=== PATIENT | male | born 1955 | race Caucasian/White ===

== ENCOUNTER 2023-11-27 01:08 | Outpatient (CLI) | payer MEDICARE, MEDICAID, SELFPAY | END 2023-11-27 01:09 | disposition home or self-care (01) | LOC: AMB 11-28 13:56 | PROVIDERS: PCP Family Medicine; Visit Provider Family Medicine | DX: R53.1 Weakness (principal); R06.09 Other forms of dyspnea | CPT/HCPCS: A0425; A0427 ==

== ENCOUNTER 2023-11-27 01:45 | Inpatient (IN) | payer MEDICARE, MEDICAID, SELFPAY ==
--- NOTE | 2023-11-27 | XR_ITS ---
Patient: EDYTA TELLEZ Facility:?[facility] Patient ID:?[id number] Site Patient ID:?[id number]. Site :?[id number] Study:?XRay-Chest PORTABLE-11/27/2023 3:03:25 AM Ordering Physician:FLY Final Report: INDICATION: Weakness. TECHNIQUE: Chest 1 view. COMPARISON: None. FINDINGS: Cardiovascular and mediastinum: Heart size and vasculature are normal in caliber and appearance. Lungs and pleural spaces: Patchy opacities in the right lower lung zone. No pleural effusions or pneumothorax. Bones and soft tissues: No significant findings. IMPRESSION: Right lower lung zone patchy opacities, likely representing pneumonia. Dictated by Twin Johnson MD @ 11/27/2023 3:05:44 AM Signed by:?Twin Johnson MD @11/27/2023 3:05:44 AM (Electronic Signature)
[2023-11-27 01:45] VITALS: BP 136/93; PULSE 80; RESP 20; TEMP 36.9; O2SAT 95
[2023-11-27] MEDS: 0.9 % SODIUM CHLORIDE 500 ML 500 ML IV (02:30)
[2023-11-27] MEDS: cefTRIAXone 1 GM in 0.9 % SODIUM CHLORIDE Mini-bag 100 ML IVPB (03:30)
--- NOTE | 2023-11-27 03:39 | ED_ITS ---
HPI - General Adult General Chief complaint: Weakness Stated complaint: weakness Time Seen by Provider: 11/27/23 03:39 Source: patient Mode of arrival: EMS Limitations: altered mental status and physical limitation History of Present Illness HPI narrative: Downtime documentation Jamil khalil Elderly gentleman with history of frontotemporal dementia presents via EMS with weakness.? He is on limited treatment due to his dementia, pulsed form is reviewed.? Apparently some facial droop was noted this morning.? He has been weaker than usual and is typically ambulatory though he is typically nonverbal at baseline.? He has had poor appetite, no fevers noted.? Breath sounds were coarse noted by EMS, they tried giving a DuoNeb in place the patient on supplemental oxygen.? O2 sats were in the mid 80s upon arrival improved to 92% on 4 L.? There did not seem to be improvement with the DuoNeb.? There is COVID present the in the facility but not in his neighboring area.? He does not give any additional information due to his nonverbal status.? All is obtained from EMS.? They do not report that he is prone to any particular infections.? No injury or trauma of note.? He is not anticoagulated. Home meds are cetirizine p.r.n., Tylenol p.r.n., senna p.r.n., it does not appears though he takes any chronic long-term medications on a daily basis. No known drug allergies.? Past medical history obtained only from paper records showing chronic pain, dementia, post herpetic neuropathy and constipation.? Patient is DNR with selective treatment recommended.? He has a county guardian. On physical exam, blood pressure is 123/89, pulse 1 await O2 sats are currently 100% on 4 L with a temp of 98.5? and respiratory rate of 20. ?Generally, he is pale Adolfo E coarse breath sounds, nonverbal.? The head is atraumatic eyes with normal-appearing pupils and conjunctiva.? Initially tracks me visually around the room but then falls asleep and will arouse briefly on stimulation but not attempt to speak.? Oropharynx with dry appearing membranes, poor dentition.? No obvious infection or swelling of the gums.? The neck does move in all directions as he looks around the room with no signs of rigidity.? No obvious lymphadenopathy heart with regular rate rhythm, slightly tachycardic no obvious murmur.? It is difficult hear the heart sounds over the very coarse breath sounds.? It does not sound like a wheeze more so like a central Adolfo that he does not attempt to clear on exam.? He has not kept neck but there is very poor aeration in the bases.? Abdomen soft nontender nondistended with no masses.? Does not seem to have any organomegaly.? The lower extremities have no pitting edema.? Neurological exam is quite difficult as he does not follow commands for me, no obvious tremor.? He does make some purposeful movements with his arms to hold on to cords and my hand but I cannot assess neurological function properly.? The skin does not have any obvious new open wounds on the legs, torso, arms or head. Course: Patient presenting with weakness, difficult to interpret in this patient with frontotemporal dementia but certainly does seem different than his baseline.? Infectious etiology most likely.? COVID, pneumonia, UTI strongly considered.? Cannot exclude electrolyte abnormality, dehydration, cardiac process, stroke, amongst many others.? Will start with chest x-ray, EKG, typical labs.? Will bolus 0.5 L of normal saline and put on mobility specialist.? I will need some clarification of his treatment goals based on our findings.? Await clinical response and lab studies.? I did attempt to obtain information from [employer]iq which is our down time platform and it was impossibly useless. Chest x-ray per my interpretation is showing right-sided consolidation.? Compared with Radiology interpretation, congruent. TECHNIQUE: Chest 1 view. COMPARISON: None. FINDINGS: Cardiovascular and mediastinum: Heart size and vasculature are normal in caliber and appearance. Lungs and pleural spaces: Patchy opacities in the right lower lung zone. No pleural effusions or pneumothorax. Bones and soft tissues: No significant findings. IMPRESSION: Right lower lung zone patchy opacities, likely representing pneumonia. Dictated by Twin Johnson MD @ 11/27/2023 3:05:44 AM (Electronic Signature) Labs unfortunately hemolyzed, redrawn.? This is causing significant delay in his care.? Chest x-ray is reviewed as above.? Patient clinically with pneumonia will start Rocephin, azithromycin and bolus 500 mL of normal saline x1.? Anticipated admission.? Still waiting for labs Related Data Home Medications ?Medication ?Instructions ?Recorded ?Confirmed No Known Home Medications 11/27/23 11/27/23 Allergies Allergy/AdvReac Type Severity Reaction Status Date / Time No Known Drug Allergies Allergy Verified 11/27/23 04:23 Exam Const: Vital Signs, click to edit/add: Vital Signs - 24 hr 11/27/23 01:45 11/27/23 04:27 Temperature 98.5 F Pulse Rate 98 Pulse Rate [Pulse Oximeter] 80 Respiratory Rate 20 22 Blood Pressure 122/86 Blood Pressure [Ri ght Upper Arm] 136/93 H Pulse Oximetry 95 93 Oxygen Delivery Me thod Nasal Cannula Non Rebreather Mas k Oxygen Flow Rate 4 4 Course Course ED Course: There was a significant delay in getting the patient's labs back due to downtime, acuity in the emergency department but also that the labs hemolyzed twice. The 3rd draw did finally run appropriately. His markedly elevated procalcitonin, elevated lactate with no other signs of sepsis. Creatinine is 1.9 with a baseline of around 1, he is really quite ill. The chest x-ray showing pneumonia. He has been started on Rocephin and azithromycin. He has had to boluses of IV fluid. He still is not showing any signs of hypotension. Tachycardia has improved after fluid. He still remains on 4 L of nasal cannula to maintain oxygen saturations and is still nonverbal which is his baseline. Hi need to have a conversation with his guardian regarding goals of care but I have reviewed his POLST and it does clearly say that he would want selective treatment but no intubation or critical care measures. Will admit to hospitalist for further guided care though is prognosis is fairly guarded. Diag noses thus far acute pneumonia, acute hypoxic respiratory failure, acute renal failure, cardiac strain secondary to acute illness. message left for guardian, no answer. Reevaluation(s) Time of Reevaluation #1: 06:25 Reevaluation #1: Spoke with overnight hospitalist, admission accepted but will probably wait to be seen by incoming day shift doctor. Still awaiting callback from guardian. Vital Signs Vital signs: Initial Vital Signs Temperature 98.5 F 11/27/23 01:45 Temperature Source Temporal Artery Scan 11/27/23 01:45 Pulse Rate 80 11/27/23 01:45 Respiratory Rate 20 11/27/23 01:45 Blood Pressure 136/93 H 11/27/23 01:45 Blood Pressure Mean 107 H 11/27/23 01:45 Blood Pressure Position Sitting 11/27/23 01:45 Pulse Oximetry 95 11/27/23 01:45 Oxygen Delivery Method Nasal Cannula 11/27/23 01:45 Oxygen Flow Rate 4 11/27/23 01:45 Vital Signs Temperature 98.5 F 11/27/23 01:45 Pulse Rate 80 11/27/23 01:45 Respiratory Rate 20 11/27/23 01:45 Blood Pressure 136/93 H 11/27/23 01:45 Pulse Oximetry 95 11/27/23 01:45 Oxygen Delivery Method Nasal Cannula 11/27/23 01:45 Oxygen Flow Rate 4 11/27/23 01:45 Temperature 98.5 F 11/27/23 01:45 Pulse Rate 98 11/27/23 04:27 Respiratory Rate 22 11/27/23 04:27 Blood Pressure 122/86 11/27/23 04:27 Pulse Oximetry 93 11/27/23 04:27 Oxygen Delivery Method Non Rebreather Mask 11/27/23 04:27 Oxygen Flow Rate 4 11/27/23 04:27 Medications Administered Medications: Discontinued Medications Generic Name Dose Route Start Last Admin Trade Name Freq PRN Reason Stop Dose Admin Ceftriaxone Sodium 1 gm/ 100 mls @ 200 mls/hr 11/27/23 03:20 11/27/23 05:00 Sodium Chloride IVPB 11/27/23 03:21 Infused ONCE ONE Infusion Azithromycin 500 mg/ Sodium 255 mls @ 255 mls/hr 11/27/23 03:20 11/27/23 05:28 Chloride IVPB 11/27/23 03:21 Infused ONCE ONE Infusion Sodium Chloride 500 mls @ 500 mls/hr 11/27/23 02:30 11/27/23 04:59 0.9 % Sodium Chloride 500 Ml IV 11/27/23 03:29 Infused .Q1H ONE Infusion Medical Decision Making Lab Data Lab results reviewed: Yes I reviewed the patient's lab results Lab results narrative: Marked derangement of multiple labs. Elevated lactate, elevated creatinine, mild elevation troponin. Marked elevation of procalcitonin and CRP. Viral swabs are negative. These all point to a pretty severe infection with signs of some early sepsis. No severe sepsis. Please note that there was a marked delay in getting his lab result, over 3 hours due to multiple unfortunate hemolysis events and also delays for EMR down time as well as staffing resources due to acuity of other patients. Patient is on limited, selective treatment. It is thought that the repeat lactate would not be helpful because of his severely debilitated state and previous desire for limited treatment. Message has been l eft for guardian to clarify goals. Labs: Lab Results 11/27/23 11/27/23 Range/Units 02:09 04:30 WBC 10.68 (4.50-11.00) K/uL RBC 5.28 (4.30-5.90) m/uL Hgb 16.6 (13.5-17.5) gm/dL Hct 50.8 (37.0-53.0) % MCV 96 (80-100) fL MCH 31 (26-34) pg MCHC 33 (32-36) gm/dL Plt Count 154 (140-440) K/uL Neut % (Auto) 82.2 H (42.0-72.0) % Lymph % (Auto) 7.7 L (20-44) % Mcdonald % (Auto) 9.4 (0.0-11.0) % Eos % (Auto) 0.0 (0.0-7.0) % Baso % (Auto) 0.1 (0.0-3.0) % Neut # (Auto) 8.80 H (1.7-7.0) K/uL Lymph # (Auto) 0.80 L (0.90-2.90) K/uL Mcdonald # (Auto) 1.00 H (0.00-0.90) K/UL Eos # (Auto) 0.00 (0.00-0.50) K/uL Baso # (Auto) 0.00 (0.00-0.30) K/uL Sodium 139 (135-149) mmol/L Potassium 4.8 (3.6-5.1) mmol/L Chloride 103 (96-114) mmol/L Carbon Dioxide 26 (20-32) mmol/L Anion Gap 10 (7-15) mEq/L BUN 43 H (7-30) mg/dL Creatinine 1.9 H (0.5-1.5) mg/dL Estimated GFR 37 ml/min Glucose 182 H (60-115) mg/dL Lactate 3.8 H (0.5-1.9) mmol/L Calcium 8.7 (8.4-10.6) mg/dL Total Bilirubin 0.6 (0.1-1.5) mg/dL AST 41 H (12-35) U/L ALT 20 (4-50) U/L Alkaline Phosphatase 46 (40-150) U/L Total Creatine Kinase 856 H (54-186) U/L Troponin I 0.08 H* (0.01-0.04) ng/mL C-Reactive Protein 23.8 H (0.5-1.0) mg/dL NT-Pro-B Natriuret Pep 3770 pg/mL Total Protein 7.1 (6.0-8.3) g/dL Albumin 4.1 (3.3-5.0) g/dL Procalcitonin 44.40 H (<0.50) ng/mL Ethyl Alcohol < 0.10 H (0.01-0.03) % SARS-CoV-2 (PCR) Negative SARS-CoV-2 (Negative) Influenza Type A (PCR) Negative PCR FLU A (Negative) Influenza Type B (PCR) Negative PCR FLU B (Negative) RSV (PCR) Negative PCR RSV (Negative) ECG Data Attestation: I personally reviewed and interpreted this ECG as follows: Interpretation: Sinus tachycardia, rate 104. There are a few PACs present but overall regular. Normal intervals and axis. No obvious new ST or T-wave abnormalities or signs of ischemia. Comparison 02/20/08, similar. Discharge Plan Discharge Clinical Impression: HCAP (healthcare-associated pneumonia), Acute hypoxic respiratory failure, Acute renal failure Patient Disposition: Admitted As Inpatient Condition: Guarded
[2023-11-27] MEDS: AZITHROMYCIN 500 MG in 0.9 % SODIUM CHLORIDE 250 ml 250 ML 255 MG IVPB (04:00)
[2023-11-27 04:27] VITALS: BP 122/86; PULSE 98; RESP 22; O2SAT 93
[2023-11-27 05:32] LABS: Basophils Percent Auto 0.1 % (0.0-3.0); Hematocrit 50.8 % (37.0-53.0); Hemoglobin* 16.6 gm/dL (13.5-17.5); Lymphocytes Percent Auto 7.7 % (20-44); Mean Corpuscular HGB Conc 33 gm/dL (32-36); Mean Corpuscular Hemoglobin 31 pg (26-34); Mean Corpuscular Volume 96 fL (80-100); Monocytes Percent Auto 9.4 % (0.0-11.0); Neutrophils Percent Auto 82.2 % (42.0-72.0); Platelet Count* 154 K/uL (140-440); Red Blood Count 5.28 m/uL (4.30-5.90); White Blood Count* 10.68 K/uL (4.50-11.00)
[2023-11-27 05:33] LABS: Slide Review Reflex No
[2023-11-27 05:39] LABS: Anion Gap 10 mEq/L (7-15); Blood Urea Nitrogen* 43 mg/dL (7-30); Carbon Dioxide* 26 mmol/L (20-32); Chloride* 103 mmol/L (96-114); Creatinine* 1.9 mg/dL (0.5-1.5); Estimated Glomerular Filt Rate 37 ml/min; Potassium* 4.8 mmol/L (3.6-5.1); Sodium* 139 mmol/L (135-149)
[2023-11-27 05:39] LABS: Lactate* 3.8 mmol/L (0.5-1.9)
[2023-11-27 05:40] LABS: Alanine Aminotransferase* 20 U/L (4-50); Albumin* 4.1 g/dL (3.3-5.0); Alkaline Phosphatase* 46 U/L (40-150); Aspartate Amino Transferase* 41 U/L (12-35); Bilirubin Total* 0.6 mg/dL (0.1-1.5); Calcium* 8.7 mg/dL (8.4-10.6); Creatine Kinase* 856 U/L (54-186); Glucose* 182 mg/dL (60-115); Total Protein* 7.1 g/dL (6.0-8.3)
[2023-11-27 05:41] LABS: NT Pro B Type NatriureticPept* 3770 pg/mL; Troponin I* 0.08 ng/mL (0.01-0.04)
[2023-11-27 05:42] LABS: C Reactive Protein* 23.8 mg/dL (0.5-1.0); Ethanol* < 0.10 % (0.01-0.03)
[2023-11-27 05:43] LABS: PCR FLU A Negative PCR FLU A (Negative); PCR FLU B Negative PCR FLU B (Negative); PCR RSV Negative PCR RSV (Negative); SARS PCR* Negative SARS-CoV-2 (Negative)
--- NOTE | 2023-11-27 07:48 | PM.IMHP1 ---
Hospitalist- H&P: HPI History of Present Illness Date Seen: 11/27/23 Chief complaint: weakness Narrative: Jamil Patino is a 68 year old male CXR 1V IMPRESSION: Right lower lung zone patchy opacities, likely representing pneumonia. Meds Home Medications and Allergies Home Medications ?Medication ?Instructions ?Recorded ?Confirmed ?Type No Known Home Medications 11/27/23 11/27/23 History Allergies Allergy/AdvReac Type Severity Reaction Status Date / Time No Known Drug Allergies Allergy Verified 11/27/23 04:23 Exam Const: Vital Signs, click to edit/add: Vital Signs - 24 hr 11/27/23 01:45 11/27/23 04:27 Temperature 98.5 F Pulse Rate 98 Pulse Rate [Pulse Oximeter] 80 Respiratory Rate 20 22 Blood Pressure 122/86 Blood Pressure [Ri ght Upper Arm] 136/93 H Pulse Oximetry 95 93 Oxygen Delivery Me thod Nasal Cannula Non Rebreather Mas k Oxygen Flow Rate 4 4 Hospitalist - H&P: Result Labs Labs: Short CBC 11/27/23 Range/Units 02:09 WBC 10.68 (4.50-11.00) K/uL Hgb 16.6 (13.5-17.5) gm/dL Hct 50.8 (37.0-53.0) % Plt Count 154 (140-440) K/uL BMP 11/27/23 04:30 Sodium 139 Potassium 4.8 Chloride 103 Carbon Dioxide 26 BUN 43 H Creatinine 1.9 H Glucose 182 H Calcium 8.7 Cardiac Enzymes 11/27/23 Range/Units 04:30 Total Creatine Kinase 856 H (54-186) U/L Troponin I 0.08 H* (0.01-0.04) ng/mL Liver Function 11/27/23 Range/Units 04:30 Total Bilirubin 0.6 (0.1-1.5) mg/dL AST 41 H (12-35) U/L ALT 20 (4-50) U/L Alkaline Phosphatase 46 (40-150) U/L Albumin 4.1 (3.3-5.0) g/dL
[2023-11-27 08:15] VITALS: RESP 22; O2SAT 92
[2023-11-27 08:30] VITALS: BP 124/84; PULSE 97; RESP 22; TEMP 37.3; O2SAT 92; O2SAT 93
[2023-11-27 09:00] VITALS: O2SAT 90
[2023-11-27] MEDS: 5 % DEX/0.9 SOD CHL+KCL 20 mEq 1,000 ML 125 ML IV (09:01)
[2023-11-27] MEDS: FUROSEMIDE 10 MG/ML inj 40 MG IVP (09:01)
[2023-11-27] MEDS: PANTOPRAZOLE SODIUM 40 MG INJ IVP (09:02)
[2023-11-27] MEDS: 0.9 % SODIUM CHLORIDE 1000 ml 1,000 ML 500 ML IV (09:07)
[2023-11-27 09:13] LABS: HCO3 VBG 24 mmol/L (21-28); Lactate* 3.1 mmol/L (0.5-1.9); PCO2 VBG 42 mmHG (40-50); PO2 VBG 36.8 mmHG (25-47); pH VBG 7.375 (7.32-7.43)
[2023-11-27 09:37] LABS: Magnesium* 2.1 mg/dL (1.5-2.6)
[2023-11-27 09:49] LABS: NT Pro B Type NatriureticPept* 2320 pg/mL
[2023-11-27 09:51] LABS: Troponin I* 0.06 ng/mL (0.01-0.04)
--- NOTE | 2023-11-27 11:59 | REH.OT ---
OT: Orders received this am. Per MD, patient transitioned to comfort cares, will defer OT/PT evals.
[2023-11-27] MEDS: fentaNYL 25 MCG/HR PATCH 1 PATCH TRANSDERMA (12:22)
[2023-11-27] MEDS: MORPHINE 10 MG/0.5 ML ORAL SOLN PO ×4 (12:22→21:31)
[2023-11-27] MEDS: LORazepam 2 MG/ML inj IVP (12:31)
[2023-11-27] MEDS: HYOSCYAMINE SULFATE 0.125 MG TAB SUBLINGUAL (12:32)
--- NOTE | 2023-11-27 13:35 | P.IMHP_ITS ---
Hospitalist- H&P: HPI History of Present Illness Date Seen: 11/27/23 Chief complaint: weakness Narrative: ADMISSION HISTORY AND PHYSICAL - HOSPITALIST Chief Complaint: Nonverbal dementia, severe with new tachycardia and weakness HPI: 68-year-old Chip presents from where he resides with advanced fronto-temporal dementia. He is nonverbal, he is fed by staff, he is able to ambulate. In the last 2 days he has had a poor appetite and has been weak (not able or initiating getting out of bed) No fever, nausea, vomiting. No falls. Staff report possible facial drooping. He has a POLST that has limited treatment. He is DNR/DNI. ER COURSE: CXR shows pna in the RLL. He was started on abx and labs were checked, small fluid bolus. He has an oxygen requirement about 4L. CODE STATUS: DNR/DNI EMERGENCY CONTACT PLAN: complicated social situation; has court appointed guardian. Daughter and guardian were bedside. Alexa Eckert cell: [phone] Joan Patino Rel To Pat Daughter I've updated the PFSH, medications and allergies in the Expanse tabs. INVESTIGATIONS: LABS/MICRO/ECG/IMAGING CXR 1V IMPRESSION: Right lower lung zone patchy opacities, likely representing pneumonia. WBC normal, pH normal, lactate 3.8 and down to 3.1 with fluid bolus. Neg covid, flu, RSV swab MRSA swab pending BC pending REVIEW OF SYSTEMS: 12-point ROS completed with patient and negative unless otherwise stated in HPI or below. PHYSICAL EXAM: CONSTITUTIONAL: will open eyes, seems to track w/his eyes who is talking but will then nod off. Is not really following commands. VITAL SIGNS: see record. HEENT: Normocephalic, atraumatic. PERRL, EOMI, conjunctivae pink, no scleral icterus. Ears and nose externally normal. Pharynx dry. NECK: No JVD. No carotid bruit, no thyromegaly, no adenopathy. CHEST: rhonchi throughout. gurgling. HEART: S1 and S2 normal. No harsh murmurs. No edema. MUSCULOSKELETAL: No gross joint deformity or swelling. NEURO: Cranial nerves intact. Grossly intact. No asymmetric findings. SKIN: No rashes, petechiae, concerning changes PSYCHIATRIC: mostly obtunded. [facility] DVT: N/A GI: N/A Time spent: Today I spent 75 minutes seeing the patient, discussing the patient with ER staff, reviewing Expanse and EPIC notes/diagnostics, discussing the care plan with our care time that includes social work, PT/OT, pharmacy, RT, mcfp and documenting my impressions and plan in the medical record. [facility] Medical History (Updated 11/27/23 @ 14:01 by Jacquelyn Myers MD) Frontal lobe dementia ?G31.09 - Other frontotemporal neurocognitive disorder (ICD-10) ?F02.80 - Dementia in other diseases classified elsewhere, unspecified severity, without behavioral disturbance, psychotic disturbance, mood disturbance, and anxiety (ICD-10) Social History What is your current living situation?: I presently have a place to live Problems where you live: no known problems Problems where you live details: Detention In the past 12 months, utilities in danger of being shut off: no In past 12 months, lack of transportation kept you from medical appts, meetings, work, or getting things needed for daily living: no In the past 12 mos, have been you worried that your food would run out before you had money to buy more?: never true In the past 12 mos, the food you bought just didn't last and you didn't have money to buy more?: never true Non-prescribed substance use details: unknown Caffeine: No How often does anyone, including family, friends and others, physically hurt you : unable to answer How often does anyone, including family, friends and others, insult or talk down to you: unable to answer How often does anyone, including family, friends and others, threaten you with harm: unable to answer How often does anyone, including family, friends and others, scream or curse at you: unable to answer Meds Home Medications and Allergies Home Medications ?Medication ?Instructions ?Recorded ?Confirmed ?Type acetaminophen 500 mg tablet 1,000 mg PO BID 11/27/23 11/27/23 History carbamide peroxide 6.5 % ear drops 3 drp Otic (ear-left) Q7D 11/27/23 11/27/23 History (Debrox) cetirizine 10 mg tablet (Allergy 10 mg PO DAILY 11/27/23 11/27/23 History Relief (cetirizine)) cyanocobalamin (vitamin B-12) 1,000 mcg PO DAILY 11/27/23 11/27/23 History 1,000 mcg tablet sennosides 8.6 mg tablet (Laurie-rhonda) 17.2 mg PO BID PRN 11/27/23 11/27/23 History Allergies Allergy/AdvReac Type Severity Reaction Status Date / Time No Known Drug Allergies Allergy Verified 11/27/23 04:23 Exam Const: Vital Signs, click to edit/add: Vital Signs - 24 hr 11/27/23 01:45 11/27/23 04:27 11/27/23 08:15 Temperature 98.5 F Pulse Rate 98 Pulse Rate [Pulse Oximeter] 80 Respiratory Rate 20 22 22 Blood Pressure 122/86 Blood Pressure [Ri ght Arm] Blood Pressure [Ri ght Upper Arm] 136/93 H Pulse Oximetry 95 93 92 Oxygen Delivery Me thod Nasal Cannula Non Rebreather Mas k High Flow Nasal Ca nnula Oxygen Flow Rate 4 4 30 Fraction of Inspir ed Oxygen 30 11/27/23 08:30 11/27/23 08:30 11/27/23 09:00 Temperature 99.2 F Pulse Rate Pulse Rate [Pulse Oximeter] 97 Respiratory Rate 22 22 Blood Pressure Blood Pressure [Ri ght Arm] 124/84 Blood Pressure [Ri ght Upper Arm] Pulse Oximetry 92 93 90 Oxygen Delivery Me thod High Flow Nasal Ca nnula High Flow Nasal Ca nnula Oxygen Flow Rate 30 30 Fraction of Inspir ed Oxygen 30 30 11/27/23 10:11 11/27/23 13:13 Temperature Pulse Rate Pulse Rate [Pulse Oximeter] Respiratory Rate Blood Pressure Blood Pressure [Ri ght Arm] Blood Pressure [Ri ght Upper Arm] Pulse Oximetry Oxygen Delivery Me thod OxyMask Oxygen Flow Rate 30 4 Fraction of Inspir ed Oxygen 30 Hospitalist - H&P: Result Labs Labs: Short CBC 11/27/23 Range/Units 02:09 WBC 10.68 (4.50-11.00) K/uL Hgb 16.6 (13.5-17.5) gm/dL Hct 50.8 (37.0-53.0) % Plt Count 154 (140-440) K/uL BMP 11/27/23 04:30 Sodium 139 Potassium 4.8 Chloride 103 Carbon Dioxide 26 BUN 43 H Creatinine 1.9 H Glucose 182 H Calcium 8.7 Cardiac Enzymes 11/27/23 11/27/23 Range/Units 04:30 08:50 Total Creatine Kinase 856 H (54-186) U/L Troponin I 0.08 H* 0.06 H* (0.01-0.04) ng/mL Liver Function 11/27/23 Range/Units 04:30 Total Bilirubin 0.6 (0.1-1.5) mg/dL AST 41 H (12-35) U/L ALT 20 (4-50) U/L Alkaline Phosphatase 46 (40-150) U/L Albumin 4.1 (3.3-5.0) g/dL Assessment and Plan Assessment and plan (1) Acute hypoxic respiratory failure: Problem comment: -aspiration pna likely -supported on oxygen for comfort -comfort cares to lessen air hunger Status: Acute (2) Aspiration pneumonia: Problem comment: -not witnessed; presumed -initially we pursued CAP treatment and applied humidifed high flow oxygen. He has minimal air hunger but his coarse breath sounds are prominent -met bedside with guardian and daughter; we discussed his wishes, prognosis, quality of life and they both felt he would not want to live this way even if we got him thru this -initiated comfort care protocol Status: Acute (3) Frontal lobe dementia: Problem comment: severe, end stage. nonverbal, fed by staff Status: Acute (4) Acute renal failure: Problem comment: creat1.9, GFR 35 unsure of baseline but CKD not listed in problem list from SNF Status: Acute
[2023-11-27 15:00] VITALS: RESP 22
--- NOTE | 2023-11-27 19:13 | PC.NURSE ---
Comfort care protocol: Alert, although nonverbal initially this AM. The patients lungs are coarse, productive cough, but does not know how to spit it out. Incontinent of bladder throughout the day. Q2 reposition and change. The patient is now drowsy and appears comfortable. Fentanyl patch to R chest. R forearm IV. Mouth cares provided throughout the shift. The patients family came to visit this evening. Tasneem CARROLL BSN
[2023-11-27] MEDS: SODIUM CHLORIDE 0.9 % (FLUSH) 10 ML SYRINGE 5 ML IVF (20:42)
[2023-11-28] MEDS: MORPHINE 10 MG/0.5 ML ORAL SOLN PO ×4 (01:28→14:24)
[2023-11-28 02:09] VITALS: TEMP 39.4
[2023-11-28] MEDS: ACETAMINOPHEN 650 MG SUPP PR (02:09)
[2023-11-28] MEDS: HYOSCYAMINE SULFATE 0.125 MG TAB SUBLINGUAL (05:01)
--- NOTE | 2023-11-28 06:52 | PC.NURSE ---
End of shift note ([id number]): Patient on comfort cares. Opened eyes a couple times during cares. Repositioned q 2 hrs. PRN morphine given for grimacing in pain and prior to cares. PRN Tylenol suppository given for fever. ?
[2023-11-28 07:00] VITALS: RESP 20; O2SAT 90
--- NOTE | 2023-11-28 09:07 | NUTR.NU ---
RDN with nutrition screen related to positive skin risk. Patient admitted for pneumonia and respiratory failure. Per IDT meeting today, MD reports patient is now on comfort cares. With comfort care status, nutrition interventions not appropriate at this time. RDN to monitor.
[2023-11-28] MEDS: SODIUM CHLORIDE 0.9 % (FLUSH) 10 ML SYRINGE 5 ML IVF ×2 (09:47→20:38)
--- NOTE | 2023-11-28 11:54 | PM.IMPN1 ---
Progress Note: A&P Assessment and plan (1) Acute hypoxic respiratory failure: Problem details: -aspiration pna likely -comfort cares to lessen air hunger Status: Acute (2) Aspiration pneumonia: Problem details: -not witnessed; presumed -transitioned to comfort cares morning of 11/27/23 -met bedside with guardian and daughter; we discussed his wishes, prognosis, quality of life and they both felt he would not want to live this way even if we got him thru this -updated ANTNOIA bedside am of 11/28/23 Status: Acute (3) Frontal lobe dementia: Problem details: severe, end stage. nonverbal, fed by staff Status: Acute (4) Acute renal failure: Problem details: creat1.9, GFR 35 unsure of baseline but CKD not listed in problem list from SNF Status: Acute Subjective Date Seen: 11/28/23 Interval history: Daily Progress Note - Hospital Medicine Day #: 2 CC: end stage dementia; aspiration pneumonia, end of life care 24 HOUR UPDATE: resting comfortably; febrile; minimal air hunger Notable Labs, Micro, Rads, Interventions: no new diagnostics. HF NC02 was not making any comfort difference so this was discontinued. Objective: obtunded. Vitals: see above Lungs: shallow respirations. Cardiac: S1S2. Disposition/Potential discharge - end of life cares here vs transfer to SNF for Hospice. I spoke with Barb KNIGHT, about his transition and my thoughts. Today I spent 50minutes seeing the patient, reviewing Expanse and EPIC notes/diagnostics, discussing the care plan with our care time that includes social work, PT/OT, pharmacy, RT, nursing home and documenting my impressions and plan in the medical record. Exam Const: Vital Signs, click to edit/add: Vital Signs - 24 hr 11/27/23 13:13 11/27/23 15:00 11/27/23 15:00 Temperature Respiratory Rate 22 Pulse Oximetry Oxygen Delivery Me thod OxyMask Room Air Oxygen Flow Rate 4 11/27/23 23:00 11/28/23 02:09 11/28/23 07:00 Temperature 103 F H Respiratory Rate 20 Pulse Oximetry Oxygen Delivery Me thod Room Air Oxygen Flow Rate 11/28/23 07:00 Temperature Respiratory Rate 20 Pulse Oximetry 90 Oxygen Delivery Me thod Room Air Oxygen Flow Rate
--- NOTE | 2023-11-28 14:55 | PC.SOCIAL ---
Addendum entered by RADHA Abraham 11/28/23 15:11: Discharge planning: factory worker also updated the charge nurse on duty with all of the below updates. Social work to follow-up as needed. Original Note: Discharge planning: factory worker spoke to pt's court appointed guardian, Tomeka, today to connect about a plan for the pt tomorrow if he is still present in the morning. Tomeka shared that it would be best for the pt to go back to his room in the memory care unit with hospice care in place, if at all possible. Tomeka was fine with either [facility] or [facility], if hospice is needed. factory worker consulted with the provider on duty who shared that the pt would be fine to go in an ambulance ride in the morning if he does need to transfer. factory worker also spoke to social melissa Hickman at [facility] #[phone], and she consulted with the nursing staff whom shared that they could take the pt back at his memory care unit with hospice in place if that is what is recommended/needed in the morning. factory worker will check back in with Vick in the morning, if needed. factory worker then also updated pt's guardian, Tomeka, with the news that [facility] could take the pt back tomorrow in his room on the memory care unit with hospice in place. Tomeka was thankful for the update. Social work to follow-up as needed.
[2023-11-28 15:00] VITALS: PULSE 104; RESP 20; O2SAT 90
--- NOTE | 2023-11-28 19:05 | PC.NURSE ---
End of shift: patient turn and repo Q2 hrs. Brief checked for wetness. Patient administered Morphine for pain. Patient resting comfortably. Fent. patch to right upper chest intact. IV in R FA intact and patent.
[2023-11-28 23:00] VITALS: PULSE 99; RESP 20; O2SAT 89
[2023-11-29] MEDS: MORPHINE 10 MG/0.5 ML ORAL SOLN PO ×3 (03:02→15:46)
--- NOTE | 2023-11-29 06:04 | PC.NURSE ---
Shift note: Pt has been comfortable in bed in most the night. Turn and reposition Q2h. At 0300, pt was restless. Morphine 10mg given and appeared effective. Pt only had 1 soiled brief. Pt has occasional jerky and startle movement of the upper extremities. No excessive oral secretion noted.
[2023-11-29 07:00] VITALS: PULSE 156; RESP 28; O2SAT 67
[2023-11-29] MEDS: HYOSCYAMINE SULFATE 0.125 MG TAB SUBLINGUAL (07:49)
--- NOTE | 2023-11-29 11:38 | PM.DS1 ---
DS: Providers Provider Date Seen: 11/29/23 Date of admission: 11/27/23 07:40 Primary care physician: Roby Jay MD Admitting Clinician: Jacquelyn Myers MD Consults: 11/27/23 08:00 Consult to Respiratory Therapy [CONS] Routine Comment: Reason(s) for RT Consult:: Consult Consult to Metrologist [CONS] Routine Comment: Reason for Consult:: Social Service Consult Attending Physician on discharge: Jacquelyn Myers MD Date of Discharge: 11/29/23 DS: Diagnosis Discharge Diagnosis (1) Acute hypoxic respiratory failure: Status: Acute Problem details: -aspiration pna likely -comfort cares to lessen air hunger (2) Aspiration pneumonia: Status: Acute Problem details: -not witnessed; presumed -transitioned to comfort cares morning of 11/27/23 -met bedside with guardian and daughter; we discussed his wishes, prognosis, quality of life and they both felt he would not want to live this way even if we got him thru this -updated ANTONIA bedside am of 11/28/23 (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 nonverbal, fed by staff (4) Acute renal failure: Status: Acute Problem details: creat 1.9, GFR 35 unsure of baseline but CKD not listed in problem list from SNF DS: Summary Hospital Course Hospital Course: FINAL DIAGNOSIS/FOLLOW UP ISSUES: End of Life Care - Accepted to Hospice services at [facility]. BRIEF HOSPITAL COURSE: Patient was admitted for 3 days. Chip has advanced frontotemporal dementia and likely had an aspiration event in the days [employer]. Initially we stablized and started treatment for aspiration/community acquired pneumonia. He was delirious, febrile, weak. He is nonverbal at a baseline. After a lengthy discussion with multiple people (daughter, court-ordered guardian, [id number]) DISCHARGE MEDICATIONS: See Reconciled list - SIGNIFICANT CHANGES: Comfort based medication orders Specific instructions to the patient and follow-up are outlined below. REVIEW OF SYSTEMS No new chest pain or dyspnea Pain controlled No voiding difficulties Tolerating diet challenge PHYSICAL EXAM: CONSTITUTIONAL: obtunded; febrile. mild resp hunger. VITAL SIGNS: see record. HEENT: Normocephalic, atraumatic. PERRL, EOMI, conjunctivae pink, no scleral icterus. Ears and nose externally normal. Pharynx normal. NECK: No JVD. No carotid bruit, no thyromegaly, no adenopathy. CHEST: shallow rapid breathes; diffuse rhonchi HEART: S1 and S2 normal. no edema. ABDOMEN: Soft, nontender. Normal bowel sounds. MUSCULOSKELETAL: No gross joint deformity or swelling. NEURO: Cranial nerves intact. Grossly intact. No asymmetric findings. SKIN: No rashes, petechiae, concerning changes PSYCHIATRIC: comatose DISPOSITION: Hospice placement Time spent on discharge 37 minutes. Time Spent with Patient Time attestation: Total time spent providing and/or coordinating discharge services: Exam Const: Vital Signs, click to edit/add: Vital Signs - 24 hr 11/28/23 15:00 11/28/23 15:00 11/28/23 23:00 Pulse Rate [Pulse Oximeter] 104 H 99 Respiratory Rate 20 20 20 Pulse Oximetry 90 Oxygen Delivery Me thod Room Air 11/28/23 23:00 11/29/23 07:00 11/29/23 07:00 Pulse Rate [Pulse Oximeter] 156 H Respiratory Rate 20 28 H 28 H Pulse Oximetry 89 67 L Oxygen Delivery Me thod Room Air Room Air DS: Data Data Completed and Pending Labs on day of discharge: Preliminary micro results at discharge 11/27/23 08:50 Blood Culture - Preliminary Blood NO GROWTH AFTER 48 HOURS Discharge Plan Discharge Disposition: [facility] Date of Admission: 11/27/23 07:40 Attending Provider on Discharge: Jacquelyn yMers Primary Care Provider: Roby Jay Discharge Medications: New morphine concentrate 10 mg/0.5 mL Syringe 1 - 10 mg PO Q1H PRNQty: 5 0RF lorazepam 2 mg/mL Syringe 0.5 - 2 mg IV push (test dose) Q1H PRNQty: 5 0RF hyoscyamine sulfate 0.125 mg Tablet,Disintegrating 0.125 - 0.25 mg sublingual Q4H PRN (Reason: To decrease secretions) Qty: 20 0RF fentanyl 25 mcg/hr Patch 72 Hour 1 patch transdermal Q72H Qty: 10 0RF acetaminophen 650 mg Suppository 650 mg AK Q6H PRN (Reason: As needed for fever, headache, or minor pain) Qty: 30 0RF Discontinued cetirizine [Allergy Relief (cetirizine)] 10 mg tablet 10 mg PO DAILY cyanocobalamin (vitamin B-12) 1,000 mcg tablet 1,000 mcg PO DAILY Debrox 6.5 % drops 3 drp Otic (ear-left) Q7D Rx Instructions: wednesdays acetaminophen 500 mg tablet 1,000 mg PO BID Patient Comments: plus daily prn sennosides [Laurie-rhonda] 8.6 mg tablet 17.2 mg PO BID PRN Discharge Orders: Discharge Order (Routine); Ordered 11/29/23 Ordered By: Jacquelyn Myers Additional Instructions: Please consult HOSPICE service for evaluation/admission. Activity Detail: bedrest Discharge Diet: Regular Follow Up Appointments: Roby Jay MD [Primary Care Provider] - Forms: [facility] Info Instructions Admit to: SNF Discharge Potential: Poor Length of Stay: <30 days Can use facility standing orders?: Yes Code Status: DNR/DNI Rehab Potential: Poor Oxygen: No Urinary Catheter: No Hospice Evaluate and Admit: Please consult for admission and management of end of life care Orders are good >30 days: Yes
--- NOTE | 2023-11-29 12:27 | PC.SOCIAL ---
Addendum entered by RADHA Abraham 11/29/23 13:38: Discharge planning: Non-emergent EMS was delayed and pt's pick-up time got bumped. floorworker distributor notified [facility] and pt's guardian, Tomeka. Social work to follow-up as needed. Original Note: Discharge planning: Pt will transfer back to his room on the memory care unit at [facility] today with hospice in place through [facility]. Non-emergent EMS is scheduled for 1pm and the nurse from [facility] will be able to be to [facility] by 2pm. Pt's guardian, Tomeka, was updated with all of this information and will update the pt's family. All the needed paperwork was sent to [facility] via fax at #[phone]. Discharge orders were sent via secure email to Omayra at [facility]. Social work to follow-up as needed.
--- NOTE | 2023-11-29 15:37 | PC.NURSE ---
Nursing Care Hours: [id number] Pt this shift clammy with respiratory distress. pulse 150's and spo2 65-69% RA. Morphine PO given with Hyoscyamine PO, both effective. Pt breathing easier with moist breath sounds and resting comfortably. Staff did bed bath and gown change. Void brief changed x2. Skin intact.
--- NOTE | 2023-11-29 18:08 | PC.NURSE ---
Patient discharged to [facility] on Hospice care via non-emergent transport at 1615, IV removed intact.
== END 2023-11-29 16:15 | disposition hospice, inpatient (51) | DRG 177 ==
LOC: ED 05:57 → MEDSURG 07:42
PROVIDERS: Admitting Provider Family Medicine; Emergency Provider Family Medicine; PCP Family Medicine; Visit Provider Family Medicine
DX: J69.0 Pneumonitis due to inhalation of food and vomit (principal); J96.01 Acute respiratory failure with hypoxia; N17.9 Acute kidney failure, unspecified; G31.09 Other frontotemporal neurocognitive disorder; F02.C0 Dementia in other diseases classified elsewhere, severe, without behavioral disturbance, psychotic disturbance, mood disturbance, and anxiety
CPT/HCPCS: 36415; 71045; 80053; 81003; 82077; 82550; 82803; 83605; 83735; 83880; 84145; 84443; 84484; 85025; 86140; 87040; 87081; 87631; 93005; 99284; 99285; A9270; J0456; J0696; J1940; J2060; J2470; J7030; J7050

== ENCOUNTER 2023-11-29 16:08 | Outpatient (CLI) | payer MEDICARE, MEDICAID, OTHER, SELFPAY | END 2023-11-29 16:09 | disposition home or self-care (01) | LOC: AMB 12-02 06:54 | PROVIDERS: PCP Family Medicine; Visit Provider Emergency Medicine | DX: J96.01 Acute respiratory failure with hypoxia (principal); J69.0 Pneumonitis due to inhalation of food and vomit; G31.09 Other frontotemporal neurocognitive disorder; F02.80 Dementia in other diseases classified elsewhere, unspecified severity, without behavioral disturbance, psychotic disturbance, mood disturbance, and anxiety | CPT/HCPCS: A0425; A0428 ==